=== PATIENT | female | born 1965 | race Caucasian/White ===

== ENCOUNTER → 2023-09-22 09:33 | Outpatient (REF) | payer OTHER, SELFPAY | LOC: RAD 09:33 | PROVIDERS: ATTENDING PHYSICIAN Surgery Vascular Surgery; FAMILY PHYSICIAN Family Medicine | DX: I73.9 Peripheral vascular disease, unspecified (principal) | CPT/HCPCS: 93922; 93925 ==

== ENCOUNTER 2024-01-04 10:11 | Day surgery (SDC) | payer OTHER, SELFPAY ==
[2023-12-30 09:50] VITALS: BMI 29.0
[2023-12-30 10:26] LABS: % Basophils 0.7 % (0-2); % Eosinophils 2.7 % (0-6); % Immature Granulocytes 0.5 % (0-0.5); % Monocytes 6.5 % (1.7-9.3); % Neutrophils 74.6 % (42.2-75.2); Absolute Basophils 0.1 10^3/uL (0-0.2); Absolute Eosinophils 0.2 10^3/uL (0-0.7); Absolute Lymphocytes 1.3 10^3/uL (1.2-3.4); Absolute Monocytes 0.6 10^3/uL (0.1-0.6); Absolute Neutrophils 6.6 10^3/uL (1.4-6.5); Hematocrit 38.5 % (37.0-47.0); Hemoglobin 13.8 g/dL (12.0-16.0); Mean Corp Hgb Conc. 35.8 g/dL (33.0-37.0); Mean Corpuscular Hgb 32.4 pg (27.0-31.0); Mean Corpuscular Volume 90.4 fL (81.0-99.0); Mean Platelet Volume 9.5 fL (7.4-10.4); Nucleated Red Blood Cells % 0 %; Platelet Count 191 10^3/uL (130-400); Red Blood Cell Count 4.26 10^6/uL (4.20-5.40); Red Cell Dist. Width 13.4 % (11.5-14.5); White Blood Cell Count 8.9 10^3/uL (4.8-10.8)
[2023-12-30 10:32] LABS: INR 0.99; PT 13.6 Sec (11.4-14.6)
[2023-12-30 10:33] LABS: APTT 37.8 Sec (23.4-35.0)
[2023-12-30 10:36] LABS: Blood Urea Nitrogen 11 mg/dl (7-17); Calcium 9.9 mg/dl (8.4-10.2); Carbon Dioxide 24 mmol/L (22-30); Chloride 102 mmol/L (98-107); Estimated Creatinine Clearance 67 ml/min; Glucose 124 mg/dl (70-99); Potassium 4.6 mmol/L (3.5-5.1); Sodium 138 mmol/L (135-145); eGFR > 60.00
[2024-01-04] VITALS (25 sets, daily range): BP systolic 79–157; BP diastolic 55–99
[2024-01-04] MEDS: PERIDEX 0.12% ORAL RINSE 15 ML PO (11:09)
[2024-01-04] MEDS: BACTROBAN 2% OINTMENT 1 APPLIC NASAL (11:37)
--- NOTE | 2024-01-04 13:02 | W.SUR.PREOP ---
Pre-Operative Surgical Note
-
I have examined this patient prior to the performance of the scheduled procedure.
The patient's condition is unchanged from the time of the current History and
Physical and the patient is able to undergo the scheduled procedure.
--- NOTE | 2024-01-04 16:28 | OR.RPT ---
Operative Report
Operative Report
Date of Operation: 01/04/2024
Pre Op Diagnosis:
1.) previous right axillary bifemoral artery bypass from outside hospital
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
Post Op Diagnosis:
1.) previous right axillary bifemoral artery bypass from outside hospital
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
Procedure:
1.) Cutdown and exposure of right superficial femoral artery for endovascular procedure
2.) Primary repair of right superficial femoral artery
3.) Drug-coated balloon angioplasty of right superficial femoral artery anastomosis (5 mm x 60 mm & 6 mm x 60 mm Lutonix)
4.) Drug-coated balloon angioplasty to left superficial femoral artery anastomosis (6 mm x 40 mm Lutonix)
5.) Diagnostic bilateral lower extremity arteriograms
6.) Diagnostic right upper extremity arteriogram
Surgeon: Jovanni Bradshaw III, MD
Director Mission: Júnior Brown MD PhD, PGY2
Anesthesia: Sedation with local
Fluoroscopy:
17.8 min
457 mGy
103.47 Gy.cm2
Complications: None
Estimated Blood Loss: Less than 20 cc
History and Indications for Procedure: 58-year-old female with previous right axillary artery to bifemoral artery bypass performed at an outside hospital. She was lost to follow-up but recently represented to the office where she was found to have
bilateral stenoses of the superficial femoral artery anastomoses of her axillary bifemoral artery bypass. She was brought to the operating room for endovascular intervention.
Procedure in Detail: Sera Dawn was correctly identified and placed supine on the operating table. After adequate induction of anesthesia the bilateral groins and thighs were prepped and draped in the usual sterile fashion. A timeout was
performed with the nursing and anesthesia staff confirming the patient's identity as well as the nature and laterality of the procedure.
A vertical incision was made over the proximal right thigh. Using a combination of electrocautery and sharp dissection the superficial femoral artery was exposed. Proximal and distal control was obtained with vessel loops. Under direct
visualization using a micropuncture needle, the superficial femoral artery was punctured in a retrograde fashion towards the groin. I then upsized to a 5 Honduran sheath over a Bentson wire. The patient was systemically heparinized. A limited
diagnostic right lower extremity arteriogram was then performed which demonstrated the following:
RIGHT LOWER EXTREMITY:
Patent end to side femoral anastomosis to the right superficial femoral artery. High-grade stenosis identified at the anastomosis. Diffuse high-grade stenosis involving the proximal superficial femoral artery, proximal to the anastomosis, all the
way back to the femoral bifurcation.
Under roadmap guidance I then navigated a Glidewire and Quickcross catheter retrograde through the hoh superficial femoral artery and through the hoh common femoral artery. The wire was placed in the distal right external iliac artery. I
then exchanged out for a Bentson wire. Under roadmap guidance I brought into position a 5 mm x 60 mm Lutonix drug-coated angioplasty balloon. This was positioned across the distal common femoral artery, proximal superficial femoral artery and the
distal anastomosis. The balloon was inflated to nominal pressure, held in place for 3 minutes and then slowly deflated and removed over the wire. Following this I then used a Quickcross catheter and Glidewire to navigate the wire across the
femoral anastomosis and into the graft. I then exchanged out once again for a Bentson wire. Under roadmap guidance I then positioned a 6 mm x 60 mm Lutonix drug-coated angioplasty balloon across the femoral anastomosis in this orientation. The
balloon was inflated to nominal pressure, held in place for 3 minutes and then slowly deflated and removed over the wire. Subsequent arteriogram demonstrated an excellent technical result. The anastomosis to the superficial femoral artery was
patent with only mild residual stenosis identified. There was a dissection identified in the proximal superficial femoral artery, proximal to the anastomosis but retrograde filling of the common femoral artery and profunda femoral artery was
identified.
We then focused our attention on the left lower extremity. Using a Glidewire and Quickcross catheter under roadmap guidance we navigated through the femorofemoral portion of the graft over to the left groin. A diagnostic arteriogram was then
performed which demonstrated the following:
LEFT LOWER EXTREMITY:
Patent end-to-side femoral anastomosis to the left superficial femoral artery. High-grade stenosis identified at the anastomosis. High-grade stenosis involving the proximal superficial femoral artery, proximal to the anastomosis back to the
femoral bifurcation similar to what was identified on the right.
Under roadmap guidance I then crossed the stenosis at the left femoral anastomosis using a Quickcross catheter and Glidewire. The wire was advanced to the distal superficial femoral artery. I then exchanged out for a Am[employer] Sciencesson wire through the quick
cross catheter. Under roadmap guidance I brought into position a 6 mm x 40 mm Lutonix drug-coated angioplasty balloon and centered this across the left femoral anastomosis. The balloon was slowly inflated to nominal pressure, held in place for 3
minutes and then slowly deflated and removed over the wire. Subsequent arteriogram demonstrated an excellent technical result. The left femoral anastomosis was widely patent with no residual stenosis identified.
We then focused our attention on the right upper extremity. Using the Glidewire and Quickcross catheter we navigated retrograde up the axillary portion of the graft all the way to the right axillary anastomosis. A right upper extremity arteriogram
was then performed through the Quickcross catheter which demonstrated the following:
RIGHT UPPER EXTREMITY:
Patent end-to-side axillary artery anastomosis. Patent axillary artery, brachial artery, radial artery and ulnar artery with no filling defects or stenoses identified.
Satisfied with this result we concluded the procedure. The catheter was pulled from the 5 Fr sheath. The sheath was pulled from the superficial femoral artery puncture site. The vessel loops were secured. The artery puncture site was repaired
primarily with 2 interrupted 6-0 Prolene sutures. The vessel loops were then released. There was an easily palpable pulse in the superficial femoral artery proximal and distal to the repair. Hemostasis was achieved at the suture line. The wound
was irrigated with saline solution. Hemostasis was achieved in the wound bed. The wound was closed in layers and sterile dressings were applied.
The patient tolerated the procedure well and was taken to the recovery area in stable condition.
Attestation: I was present and responsible for the entire procedure.
Signed:
Jovanni Bradshaw III, MD
[facility]
[phone] (cell)
--- NOTE | 2024-01-04 17:14 | W.IMMPOSTOP ---
Surgical Immed Post Op Note
-
Primary Surgeon: Dr. Jovanni Bradshaw III, MD
Assisting Surgeon: Júnior Brown MD, PhD (PGY-2)
Pre-op Diagnosis: Prior right axillary bifemoral artery bypass with distal anastomotic stenosis
Post-op Diagnosis: Prior right axillary bifemoral artery bypass with distal anastomotic stenosis
Procedure Performed: Cut down and exposure of right SFA, balloon angioplasty of right SFA anastomosis, balloon angioplasty of left SFA anastomosis, diagnostic right upper extremity arteriogram
Anesthesia Type: Sedation
Specimen / Cultures: None
Estimated Blood Loss: Minimal
Complications: None
Operative Findings: The patient was brought to the OR, prepped and draped in usual sterile fashion. Incision was made overlying the prior right SFA cut down site. Electrocautery and sharp dissection was used to expose the right SFA. Proximal and
distal control was obtained on the right SFA. A micropuncture kit was used to access the right SFA and this was upsized to a 5Fr sheath over a FullStoryson wire. A catheter was advanced over a guidewire. Diagnostic arteriogram showed a stenotic right SFA
distal anastomosis. This was treated with a balloon angioplasty. The wire was then passed to the proximal SFA prior to the site of the anastomosis on the right side, balloon angioplasty was performed here. Then a glidewire was used to cross the
femoral-femoral bypass to the contralateral left SFA. Diagnostic arteriogram showed stenosis of the left SFA anastomotic site. This was treated with a balloon angioplasty. A glidewire was then passed up the graft to the site of the proximal
anastomosis. Arteriogram demonstrated a patent proximal anastomosis on the right axillary artery with good flow to the RUE. Completion arteriogram showed improved patency and caliber of the distal right SFA and left SFA anastomotic sites. In
addition to a patent proximal anastomosis, there was good flow into the RUE with three vessel run off to the distal wrist/hand. The patient was transported to the PACU in stable condition with doppler signals noted in the DP and PT sites on the RLE.
--- NOTE | 2024-01-04 17:15 | PTCARENOTE ---
Patient received from PACU in bed; IVF infusing; Respirations 10, oxygen saturation 93% on 2L NC; Patient drowsy, sleeping upon arrival but awakens to voice and tactile stimulation; Right groin access site with NILSON dressing, NILSON drain flashing
green, site with 2x2cm spot of sanguinous drainage; Access site without ecchymosis and is soft to palpation; Bilateral pedal pulses and posterior tibial pulses present with doppler, bilateral radial pulses weak to palpation; Bilateral lower
extremities warm to touch, capillary refill <3 seconds, patient denies numbness and/or tingling to lower extremities; Patient denies nausea/vomiting at this time; Patient states pain is a seven out of ten to the pelvic region and right groin; Care
ongoing
[2024-01-04] MEDS: NSS 1000 IV (17:56)
[2024-01-04] MEDS: OFIRMEV 100 IV (17:58)
[2024-01-04] MEDS: NEURONTIN 400 MG PO ×2 (18:28→22:37)
[2024-01-04] MEDS: CARAFATE 1 GRAM PO (18:28)
[2024-01-04] MEDS: REGLAN 10 MG PO (18:29)
[2024-01-04] MEDS: DURAGESIC 25 MCG/HR PATCH 1 PATCH TRANSDERM (18:34)
[2024-01-04] MEDS: DILAUDID 1 MG IV (18:47)
[2024-01-04] MEDS: PROTONIX 40 MG PO (19:55)
[2024-01-04] MEDS: TOPAMAX 100 MG PO (19:55)
[2024-01-04] MEDS: BUSPAR 30 MG PO (19:55)
[2024-01-04] MEDS: HEPARIN 5000 UNITS SC (19:56)
[2024-01-04] MEDS: SEROQUEL 25 MG PO (19:56)
[2024-01-04] MEDS: LOPID 600 MG PO (19:56)
[2024-01-04] MEDS: SEROQUEL 300 MG PO (22:37)
[2024-01-04] MEDS: NIASPAN TIME RELEASE 500 MG PO (22:37)
[2024-01-05] VITALS: BP 120/83
[2024-01-05] MEDS: OFIRMEV 100 IV ×2 (00:06→05:04)
[2024-01-05 03:07] VITALS: BP 122/85
[2024-01-05] MEDS: DILAUDID 1 MG IV (04:56)
[2024-01-05] MEDS: SYNTHROID 100 MCG PO (05:04)
[2024-01-05 05:43] LABS: INR 1.08; PT 14.3 Sec (11.4-14.6)
[2024-01-05 05:44] LABS: APTT 35.3 Sec (23.4-35.0)
[2024-01-05 05:46] LABS: Hematocrit 39.4 % (37.0-47.0); Hemoglobin 13.8 g/dL (12.0-16.0); Mean Corpuscular Hgb 33.7 pg (27.0-31.0); Mean Corpuscular Volume 96.1 fL (81.0-99.0); Mean Platelet Volume 9.6 fL (7.4-10.4); Platelet Count 189 10^3/uL (130-400); Red Cell Dist. Width 13.4 % (11.5-14.5); White Blood Cell Count 14.4 10^3/uL (4.8-10.8)
[2024-01-05 06:13] LABS: Blood Urea Nitrogen 10 mg/dl (7-17); Calcium 9.3 mg/dl (8.4-10.2); Carbon Dioxide 19 mmol/L (22-30); Chloride 109 mmol/L (98-107); Estimated Creatinine Clearance 75 ml/min; Glucose 92 mg/dl (70-99); Potassium 4.1 mmol/L (3.5-5.1); Sodium 139 mmol/L (135-145); eGFR > 60.00
[2024-01-05 07:45] VITALS: BP 142/99
[2024-01-05] MEDS: CARAFATE 1 GRAM PO ×2 (07:56→11:13)
[2024-01-05] MEDS: REGLAN 10 MG PO ×2 (07:56→11:13)
--- NOTE | 2024-01-05 08:28 | W.PN.VS ---
Addendum entered and electronically signed by Rodney Cook MD 01/05/24 10:01:
Seen and examined with DL Reilly. Agree with findings as noted below. Right proximal thigh dressing clean dry and intact. Thigh is soft. No hematoma. Feet are warm with dopplerable signals bilaterally. Plan/as discussed and noted below.
Original Note:
Today's Communication / Plan
-
Patient seen and evaluated at bedside with Dr. Rodney Cook, below plan reviewed with attending.
Assessment/Plan
-
Assessment: 58-year-old female POD #1 Cutdown and exposure of right superficial femoral artery for endovascular procedure
2.) Primary repair of right superficial femoral artery
3.) Drug-coated balloon angioplasty of right superficial femoral artery anastomosis (5 mm x 60 mm & 6 mm x 60 mm Lutonix)
4.) Drug-coated balloon angioplasty to left superficial femoral artery anastomosis (6 mm x 40 mm Lutonix)
5.) Diagnostic bilateral lower extremity arteriograms
6.) Diagnostic right upper extremity arteriogram
Plan:
Prefer patient be on [facility]ass protocol of Xarelto 2.5 mg p.o. twice daily with aspirin 81 mg p.o. daily. However, unclear if patient can afford with her insurance will garcia. If she cannot afford then we will continue DAPT of Plavix 75 mg p.o.
daily and aspirin 81 mg p.o. daily
Continue statin
OOB to chair with progression to ambulation as tolerated
Will return to change petra dressing prior to discharge
Likely discharge today
Subjective Data
-
Date of Service: January 05, 2024
Patient seen and examined at bedside, offers no complaints. Reports well-managed postoperative pain.
Objective Data
-
Vital Signs
Temp Pulse Resp BP Pulse Ox
98.3 F 91 14 142/99 98
01/05/24 07:45 01/05/24 07:45 01/05/24 07:45 01/05/24 07:45 01/05/24 07:45
Intake and Output
01/04/24 01/05/24 01/06/24
06:59 06:59 06:59
Intake Total 1705 / 1705
Output Total 1250 / 1250
Balance 455 / 455
Intake:
Oral fluids 420 / 420
IV fluids (Total) 1085 / 1085
normosol 125 / 125
IV piggybacks 200 / 200
Output:
Urine, Voided 1250 / 1250
Lab Results
01/05/24 04:48
01/05/24 04:48
Calcium 9.3 mg/dl (8.4-10.2) 01/05/24 04:48
Physical Exam
-
No apparent distress, resting bed comfortably
No tachycardia
No dyspnea on room air
ABD rotund, nondistended, nontender
Right surgical petra dressing dry and intact, no evidence of hematoma, all surrounding compartments soft
Bilateral DP by Doppler, bilateral feet warm
[2024-01-05] MEDS: BUSPAR 30 MG PO (09:01)
[2024-01-05] MEDS: HEPARIN 5000 UNITS SC (09:02)
[2024-01-05] MEDS: NEURONTIN 400 MG PO ×2 (09:02→12:10)
[2024-01-05] MEDS: LOPID 600 MG PO (09:02)
[2024-01-05] MEDS: FEOSOL 325 MG PO (09:02)
[2024-01-05] MEDS: CRESTOR 10 MG PO (09:02)
[2024-01-05] MEDS: LOW STRENGTH ASPIRIN 81 MG PO (09:03)
[2024-01-05] MEDS: TOPAMAX 100 MG PO (09:03)
[2024-01-05] MEDS: SEROQUEL 25 MG PO (09:03)
[2024-01-05] MEDS: PLAVIX 75 MG PO (09:03)
[2024-01-05] MEDS: PROTONIX 40 MG PO (09:03)
--- NOTE | 2024-01-05 10:33 | CM ---
Received consult for cost of Xarelto 2.5mg bid. CM spoke with pharmacist at [id number]. Per pharmacist, no cost to the patient.
--- NOTE | 2024-01-05 10:54 | CM ---
Reviewed the chart notes and spoke with the patient at the bedside. The patient resides with her mother in a two story home with no steps to enter. The patient has a rolling walker and shower chair in the home. The patient has had [facility]
in the past, but no SNF. The patient confirmed her pharmacy of choice is the [facility] [id number] [facility] in [place]. CM continues to be available to patient/family and is monitoring medical plan for needs at discharge.
Plan: Discharge to home when medically stable. No needs identified at this time.
[2024-01-05] MEDS: DILAUDID 4 MG PO (11:11)
[2024-01-05 11:56] VITALS: BP 105/71
[2024-01-05] MEDS: PEPCID 40 MG PO (12:10)
[2024-01-05] MEDS: COZAAR 100 MG PO (12:10)
[2024-01-05] MEDS: ZOFRAN 4 MG PO (13:08)
--- NOTE | 2024-01-05 15:09 | W.DS.TRANS ---
DC Summary - Teasel Setter
-
Discharge Instructions:
Discharge Diagnosis/Procedures Left superficial femoral artery cutdown for
bilateral lower extremity angiogram with
intervention
Diet As tolerated
Activity No strenuous activity
Driving Restrictions No driving for 2 weeks
Bathing Restrictions OK to Shower
Instructions:
Stand-Alone Forms: DC Instr - Vascular OR
Changes to Home Medications: Yes
Discharge Medications:
DC Medications w/original date entered in [employer]
buspirone 30 mg tablet 30 mg PO BID 12/28/23
cholecalciferol (vitamin D3) 125 mcg (5,000 unit) tablet (Vitamin D3) 125 mcg PO WEEKLY 12/28/23
clonazepam 1 mg tablet 1 mg PO HS 12/28/23
famotidine 40 mg tablet 40 mg PO NOON 12/28/23
fentanyl 25 mcg/hr transdermal patch 1 patch transdermal Q72H 12/28/23
ferrous sulfate 325 mg (65 mg iron) tablet 325 mg PO DAILY 12/28/23
gabapentin 400 mg capsule 400 mg PO QID 12/28/23
gemfibrozil 600 mg tablet 600 mg PO BID 12/28/23
hydromorphone 2 mg tablet (Dilaudid) 2 mg PO Q6H PRN pain 12/28/23
levothyroxine 100 mcg tablet (Synthroid) 100 mcg PO DAILY 12/28/23
losartan 100 mg tablet 100 mg PO NOON 12/28/23
metoclopramide HCl 10 mg tablet 10 mg PO TID 12/28/23
niacin 500 mg tablet,extended release 500 mg PO HS 12/28/23
ondansetron HCl 4 mg tablet 4 mg PO Q6H PRN nausea 12/28/23
pantoprazole 40 mg tablet,delayed release 40 mg PO BID 12/28/23
quetiapine 25 mg tablet (Seroquel) 25 mg PO BID 12/28/23
quetiapine 300 mg tablet (Seroquel) 300 mg PO HS 12/28/23
rosuvastatin 20 mg tablet 20 mg PO DAILY 12/28/23
tizanidine 4 mg capsule 4 mg PO HS PRN muscle spasm 12/28/23
topiramate 100 mg capsule,extended release 24 hr 100 mg PO BID 12/28/23
aspirin 81 mg chewable tablet 81 mg PO DAILY 01/04/24
rivaroxaban 2.5 mg tablet (Xarelto) 2.5 mg PO BID #180 tabs 01/05/24
sucralfate 1 gram tablet 1 g PO AC 14 days #42 tabs 01/05/24
vortioxetine 20 mg tablet 20 mg PO DAILY #60 tabs 01/05/24
Home Medication Changes
Adjusted:
sucralfate 1 gram tablet 1 g PO AC 14 days #42 tabs 01/05/24
vortioxetine 20 mg tablet 20 mg PO DAILY #60 tabs 01/05/24
Stopped:
Plavix 100 mg p.o. daily
Added:
rivaroxaban 2.5 mg tablet (Xarelto) 2.5 mg PO BID #180 tabs 01/05/24
Pending Results: No
[2024-01-05 16:31] VITALS: BP 116/65
[2024-01-05] MEDS: REGLAN PO (17:07)
[2024-01-05] MEDS: CARAFATE PO (17:07)
== END 2024-01-05 17:15 | disposition home or self-care (01) | DRG 253 ==
LOC: CATH 10:11
PROVIDERS: Nurse Practitioner; ATTENDING PHYSICIAN Surgery Vascular Surgery; FAMILY PHYSICIAN Family Medicine
PROC: 03JY3ZZ Inspection of Upper Artery, Percutaneous Approach (ICD-10-PCS; 2024-01-04)
PROC: 047K3Z1 Dilation of Right Femoral Artery using Drug-Coated Balloon, Percutaneous Approach (ICD-10-PCS; 2024-01-04)
PROC: 047L3Z1 Dilation of Left Femoral Artery using Drug-Coated Balloon, Percutaneous Approach (ICD-10-PCS; 2024-01-04)
DX: I70.213 Atherosclerosis of native arteries of extremities with intermittent claudication, bilateral legs (principal); Q60.0 Renal agenesis, unilateral; E03.9 Hypothyroidism, unspecified; K22.70 Barrett's esophagus without dysplasia; K58.9 Irritable bowel syndrome, unspecified; G47.419 Narcolepsy without cataplexy; G43.909 Migraine, unspecified, not intractable, without status migrainosus; I10 Essential (primary) hypertension; E78.00 Pure hypercholesterolemia, unspecified; I34.9 Nonrheumatic mitral valve disorder, unspecified; F17.210 Nicotine dependence, cigarettes, uncomplicated; Z79.82 Long term (current) use of aspirin; Z79.02 Long term (current) use of antithrombotics/antiplatelets; Z79.890 Hormone replacement therapy; Z79.899 Other long term (current) drug therapy; Y83.2 Surgical operation with anastomosis, bypass or graft as the cause of abnormal reaction of the patient, or of later complication, without mention of misadventure at the time of the procedure
CPT/HCPCS: 37224; 36415; 75716; 80048; 85025; 85027; 85610; 85730; 86850; 86900; 86901; 99406; C1725; C1894; C2623

== ENCOUNTER → 2024-01-17 12:53 | Outpatient (REF) | payer OTHER, SELFPAY ==
[2024-01-17 13:52] LABS: % Basophils 0.9 % (0-2); % Immature Granulocytes 0.5 % (0-0.5); % Lymphocytes 23.7 % (20.5-51.1); % Monocytes 7.4 % (1.7-9.3); % Neutrophils 62.5 % (42.2-75.2); Absolute Basophils 0.1 10^3/uL (0-0.2); Absolute Eosinophils 0.5 10^3/uL (0-0.7); Absolute Immature Granulocytes 0.1 10^3/uL (0-0.05); Absolute Lymphocytes 2.3 10^3/uL (1.2-3.4); Absolute Monocytes 0.7 10^3/uL (0.1-0.6); Absolute Neutrophils 6.1 10^3/uL (1.4-6.5); Hematocrit 39.3 % (37.0-47.0); Mean Corp Hgb Conc. 33.1 g/dL (33.0-37.0); Mean Corpuscular Hgb 33.2 pg (27.0-31.0); Mean Corpuscular Volume 100.5 fL (81.0-99.0); Mean Platelet Volume 9.4 fL (7.4-10.4); Nucleated Red Blood Cells % 0 %; Platelet Count 203 10^3/uL (130-400); Red Blood Cell Count 3.91 10^6/uL (4.20-5.40); Red Cell Dist. Width 14.2 % (11.5-14.5); White Blood Cell Count 9.7 10^3/uL (4.8-10.8)
== END ==
LOC: REG 12:53
PROVIDERS: ATTENDING PHYSICIAN Physician Assistant; FAMILY PHYSICIAN Family Medicine
DX: I73.9 Peripheral vascular disease, unspecified (principal); Z98.890 Other specified postprocedural states; R89.9 Unspecified abnormal finding in specimens from other organs, systems and tissues
CPT/HCPCS: 36415; 85025

== ENCOUNTER → 2024-05-08 08:54 | Outpatient (REF) | payer OTHER, SELFPAY | LOC: RAD 08:54 | PROVIDERS: ATTENDING PHYSICIAN Physician Assistant | DX: I73.9 Peripheral vascular disease, unspecified (principal) | CPT/HCPCS: 93922; 93925 ==

== ENCOUNTER 2024-06-06 05:52 | Inpatient (IN) | payer OTHER, SELFPAY ==
[2024-05-31 08:52] VITALS: BMI 29.3
[2024-05-31 10:32] LABS: % Basophils 0.8 % (0-2); % Eosinophils 3.2 % (0-6); % Immature Granulocytes 1.5 % (0-0.5); % Lymphocytes 20.9 % (20.5-51.1); % Monocytes 6.6 % (1.7-9.3); Absolute Basophils 0.1 10^3/uL (0-0.2); Absolute Eosinophils 0.2 10^3/uL (0-0.7); Absolute Immature Granulocytes 0.1 10^3/uL (0-0.05); Absolute Lymphocytes 1.6 10^3/uL (1.2-3.4); Absolute Monocytes 0.5 10^3/uL (0.1-0.6); Hematocrit 39.9 % (37.0-47.0); Hemoglobin 13.9 g/dL (12.0-16.0); Mean Corp Hgb Conc. 34.8 g/dL (33.0-37.0); Mean Corpuscular Hgb 32.9 pg (27.0-31.0); Mean Corpuscular Volume 94.3 fL (81.0-99.0); Mean Platelet Volume 9.4 fL (7.4-10.4); Nucleated Red Blood Cells % 0 %; Platelet Count 217 10^3/uL (130-400); Red Blood Cell Count 4.23 10^6/uL (4.20-5.40); Red Cell Dist. Width 13.6 % (11.5-14.5); White Blood Cell Count 7.4 10^3/uL (4.8-10.8)
[2024-05-31 10:47] LABS: INR 1.04; PT 14.1 Sec (11.4-14.6)
[2024-05-31 10:48] LABS: APTT 36.7 Sec (23.4-35.0)
[2024-05-31 11:00] LABS: Blood Urea Nitrogen 11 mg/dl (7-17); Calcium 9.7 mg/dl (8.4-10.2); Carbon Dioxide 23 mmol/L (22-30); Chloride 110 mmol/L (98-107); Estimated Creatinine Clearance 69 ml/min; Glucose 149 mg/dl (70-99); Potassium 4.4 mmol/L (3.5-5.1); Sodium 141 mmol/L (135-145); eGFR > 60.00
--- NOTE | 2024-06-02 07:55 | PTCARENOTE ---
Abn ECG, Dr. Martin notified, no new interventions required.
[2024-06-06] VITALS (26 sets, daily range): BP systolic 99–159; BP diastolic 72–110; BMI 29.2
[2024-06-06] MEDS: PERIDEX 0.12% ORAL RINSE 15 ML PO (07:09)
[2024-06-06] MEDS: BACTROBAN NASAL 1 GRAM NASAL (07:10)
--- NOTE | 2024-06-06 10:27 | OR.RPT ---
Operative Report
Operative Report
Date of Operation: 06/06/2024
Pre Op Diagnosis:
1. High-grade stenosis innominate artery
2. Right axillary to bifemoral artery bypass
3. Chronic pain syndrome
4. Active smoking
Post Op Diagnosis:
1. High-grade stenosis innominate artery
2. Right axillary to bifemoral artery bypass
3. Chronic pain syndrome
4. Active smoking
Procedure:
1. Intravascular lithotripsy to innominate artery stenosis (12 mm x 30 mm L6 shockwave balloon)
2. Balloon angioplasty and stenting of innominate artery stenosis (11 mm x 29 mm Gilmer VBX; postdilated with 12 mm x 20 mm angioplasty balloon)
3. Right common carotid artery cutdown and exposure for endovascular intervention
4. Diagnostic arteriogram of innominate, right subclavian, right axillary and right common carotid artery
Surgeon: Jovanni Bradshaw III, MD
Information Systems Planner: Ubaldo Guerra MD PGY1
Anesthesia: General
Complications: None
Estimated Blood Loss: Less than 20 cc
History and Indications for Procedure: 58-year-old female with complex vascular surgery history. She has a patent right axillary artery to bifemoral artery bypass graft. Cross-sectional imaging demonstrated a calcified high-grade stenosis
involving the innominate origin. This was felt to be compromising flow to her bypass and she was taken to the operating room for intervention.
Procedure in Detail: Sera Dawn was correctly identified and placed supine on the operating table. After adequate induction of anesthesia her right neck was positioned and then prepped and draped in usual sterile fashion. She received
preoperative antibiotics. A timeout procedure was performed with the nursing and anesthesia staff confirming the patient's identity as well as the nature and laterality of the procedure.
We started by making an incision over the right neck. Electrocautery and sharp dissection were used to expose the common carotid artery. The vagus nerve was identified and protected. Proximal and distal control was obtained on the common carotid
artery with vessel loops. The pulse in the right common carotid artery was quite weak consistent with the innominate stenosis. The patient was systemically heparinized. A 5-0 Prolene pursestring suture was placed in the common carotid artery at
the site of anticipated puncture.
The right common carotid artery was punctured in a retrograde fashion with a micropuncture needle. The wire was carefully advanced into the ascending aorta under fluoroscopic guidance. The micro dilator and sheath were carefully placed and then an
8 Malay sheath was placed over a Bentson wire. A diagnostic arteriogram was performed demonstrating high-grade calcified stenosis at the innominate origin. The more distal innominate demonstrated poststenotic dilatation. The common carotid
artery and subclavian artery were patent. The innominate bifurcation was clearly identified.
I exchanged out for a V18 wire. Due to the heavily calcified nature of the innominate artery disease and in an effort to modify the calcium to achieve maximum luminal gain with endovascular intervention I elected to proceed with intravascular
lithotripsy. The distal common carotid artery vessel loop was clamped at this point. A 12 mm x 30 mm L6 shockwave balloon was placed across the stenosis under roadmap guidance. Alternating rounds of lithotripsy pulse delivery at sub-nominal
pressure and angioplasty at nominal pressure was performed across the stenosis. In between rounds of pulse delivery and angioplasty the balloon was deflated and repositioned under roadmap guidance. All 300 pulses were delivered.
Subsequent arteriogram demonstrated significant luminal gain and improvement in the appearance of the innominate stenosis. Under roadmap guidance and magnification view I then brought into position an 11 mm x 29 mm Gilmer VBX stent. This was
positioned in the desired location and deployed by inflating the balloon to nominal pressure. The stent was then postdilated with a 12 mm x 20 mm angioplasty balloon.
The following balloon angioplasty and stent placement the common carotid artery vessel loop was released. Completion arteriogram demonstrated an excellent technical result. The innominate artery was widely patent with no significant residual
stenosis. The stent was widely patent. No dissection or filling defects were identified. The right common carotid artery was patent. The right subclavian and axillary arteries were widely patent with brisk flow and no stenosis identified. The
proximal portion of the right axillary bifemoral bypass was patent. The axillary anastomosis was patent with no stenosis identified.
Satisfied with this result we concluded the procedure. The wire was removed from the sheath. The 8 Malay sheath was removed and the pursestring suture was secured. Hemostasis was achieved at the puncture site. There was a strong and
significantly improved pulse in the right common carotid artery both proximal and distal to the puncture site. Protamine was administered. Hemostasis was achieved in the wound bed. The wound was irrigated with warm saline solution. The wound was
then closed in layers and sterile skin glue was applied.
No EEG changes were identified throughout the case. The patient awoke from general anesthesia with no immediate neurologic deficits. She was taken to the recovery room in stable condition.
Attestation: I was present and responsible for the entire procedure
Signed:
Jovanni Bradshaw III, MD
Vascular Surgery
[facility]
[2024-06-06 10:51] LABS: Hematocrit 40.5 % (37.0-47.0); Hemoglobin 13.9 g/dL (12.0-16.0); Mean Corp Hgb Conc. 34.3 g/dL (33.0-37.0); Mean Corpuscular Hgb 32.3 pg (27.0-31.0); Mean Platelet Volume 9.4 fL (7.4-10.4); Platelet Count 190 10^3/uL (130-400); Red Blood Cell Count 4.31 10^6/uL (4.20-5.40); Red Cell Dist. Width 13.7 % (11.5-14.5); White Blood Cell Count 9.7 10^3/uL (4.8-10.8)
[2024-06-06 11:13] LABS: Blood Urea Nitrogen 8 mg/dl (7-17); Calcium 8.8 mg/dl (8.4-10.2); Carbon Dioxide 19 mmol/L (22-30); Chloride 111 mmol/L (98-107); Estimated Creatinine Clearance 89 ml/min; Glucose 163 mg/dl (70-99); Potassium 4.3 mmol/L (3.5-5.1); Sodium 141 mmol/L (135-145); eGFR > 60.00
[2024-06-06] MEDS: NSS 1000 IV ×2 (11:24→23:54)
[2024-06-06] MEDS: DILAUDID 2 MG PO (11:48)
--- NOTE | 2024-06-06 12:19 | PTCARENOTE ---
arrived from PACU via bed, settled in room, see VS. Palpable pulses bilat feet, neuro exam as noted, no deficit. Updated on plan of care. Initially sonorous and falls asleep readily, now brightly awake, talking on phone, drinking coffee.
Vascular DRYER AND WASHER MECHANIC in room, reviewing plan of care. Call goodman in reach. IV fluids as ordered. See admission documentation for full assessment and history.
--- NOTE | 2024-06-06 12:20 | CON.INTV ---
Consultation
Consultation Request
Date/Time Consultation Requested: 06/06/2024922
Date/Time Consultation Performed: 06/06/2024 - 949
Requesting Provider: JAQUELINE Fairbanks
Performing Provider: Dr. Troy
Reason for Consultation: s/p inominate artery lithotripsy, angioplasty + stenting
Medical History
-
Chief Complaint: Elective innominate artery angioplasty + stenting
History of Present Illness:
58-year-old female active tobacco smoker with a past medical history of PAD s/p right axillary to bifemoral artery bypass, bilateral SFA anastomosis stenoses s/p angioplasty (01/04/2024), Teresa's esophagus, narcolepsy, migraine headaches, and
chronic pain syndrome who presents with elective vascular intervention to her stenotic innominate artery. Patient known to vascular surgery with last visit on 05/08/[address] Bradshaw. She has had prior imaging at [facility]
including a CTA which showed high-grade stenosis at her innominate origin which is likely limiting inflow to her right axillary artery to bifemoral arterial bypass. Endovascular intervention was recommended and the risks and benefits were discussed
and the patient agreed to a procedure. Today she underwent intravascular lithotripsy to the innominate artery stenosis, as well as balloon angioplasty and stenting. EBL was <20 cc and there were no immediate complications. She was transferred to
the ICU postoperatively for further care, and Group Fitness Assistant Department Head services consulted for additional management/recommendations.
Of note - she did not arrive to the ICU from the PACU until approximately 12:19 PM on 06/06/2024. When I saw the patient, she was drowsy although easily arousable and answering questions appropriately, but then would fall back asleep. Heart rate
90, BP 132/82, and saturating 95% on 4 L/min nasal cannula. She feels well with no chest pain, SOB, nausea, fevers or chills, although she does have a frontal headache which feels different than her usual migraines. RN is about to give her pain
medications with Dilaudid. Patient does not report blurry vision.
PMHx: PAD s/p right axillary to bifemoral artery bypass, bilateral SFA anastomosis stenoses s/p angioplasty (01/04/2024), tobacco use disorder, thyroid disease, IBS, Teresa's disease, narcolepsy, migraine headaches, chronic pain syndrome, single
kidney
PSHx: section x 2, right axillary to bifemoral artery bypass, AAA repair, stimulator in back, GPOEM, right superficial femoral artery angioplasty
Past Medical History
Past Medical History: Other (Above as per HPI)
Past Surgical History: Other (Above as per HPI)
Social History
Tobacco: Smoker (Smokes 1.5 PPD)
Alcohol: None
Drug: None
Family History
Family History: CAD (Mother) and Cancer (Father: Throat cancer with prior exposure to agent orange; Mother: Melanoma)
Allergies / Home Medications
Allergies
Allergy/AdvReac Type Severity Reaction Status Date / Time
Tetracyclines Allergy Severe Verified 05/30/24 12:35
Migraines/N/V
Home Medications
�Medication �Instructions �Recorded �Confirmed �Last Taken �Type
buspirone 30 mg tablet 30 mg PO BID Mental Health/Anxiety 12/28/23 06/06/24 06/05/24 23:00 History
cholecalciferol (vitamin D3) 125 125 mcg PO WEEKLY Supplement 12/28/23 05/30/24 Unknown History
mcg (5,000 unit) tablet (Vitamin
D3)
clonazepam 1 mg tablet 1 mg PO HS Mental Health/Anxiety 12/28/23 06/06/24 06/05/24 23:00 History
famotidine 40 mg tablet 40 mg PO NOON Gastrointestinal 12/28/23 06/06/24 06/05/24 12:00 History
Issue
fentanyl 25 mcg/hr transdermal 1 patch transdermal Q72H Pain 12/28/23 06/06/24 06/03/24 15:00 History
patch
ferrous sulfate 325 mg (65 mg 325 mg PO DAILY Supplement 12/28/23 06/06/24 06/05/24 12:00 History
iron) tablet
gabapentin 400 mg capsule 400 mg PO QID Pain 12/28/23 06/06/24 06/05/24 23:00 History
gemfibrozil 600 mg tablet 600 mg PO BID High Cholesterol 12/28/23 06/06/24 06/05/24 18:00 History
hydromorphone 2 mg tablet 2 mg PO Q6H PRN pain 12/28/23 06/06/24 06/06/24 04:30 History
(Dilaudid)
levothyroxine 100 mcg tablet 100 mcg PO DAILY Thyroid 12/28/23 06/06/24 06/05/24 08:00 History
(Synthroid)
niacin 500 mg tablet,extended 500 mg PO HS Supplement 12/28/23 06/06/24 06/05/24 23:00 History
release
ondansetron HCl 4 mg tablet 4 mg PO Q6H PRN nausea 12/28/23 06/06/24 06/05/24 08:00 History
pantoprazole 40 mg tablet,delayed 40 mg PO DAILY Gastrointestinal 12/28/23 06/06/24 06/05/24 18:00 History
release Issue
quetiapine 25 mg tablet (Seroquel) 25 mg PO BID Mental Health/Anxiety 12/28/23 06/06/24 06/05/24 18:00 History
quetiapine 300 mg tablet (Seroquel) 300 mg PO HS Mental Health/Anxiety 12/28/23 06/06/24 06/05/24 23:00 History
rosuvastatin 20 mg tablet 20 mg PO DAILY High Cholesterol 12/28/23 06/06/24 06/05/24 18:00 History
tizanidine 4 mg capsule 4 mg PO HS PRN muscle spasm 12/28/23 06/06/24 06/02/24 12:00 History
topiramate 100 mg capsule,extended 100 mg PO BID MIGRAINE 12/28/23 06/06/24 06/05/24 18:00 History
release 24 hr
aspirin 81 mg chewable tablet 81 mg PO DAILY Blood Clot 01/04/24 06/06/24 06/05/24 12:00 History
Prevention/Tx
rivaroxaban 2.5 mg tablet (Xarelto) 2.5 mg PO BID #180 tabs 01/05/24 06/06/24 06/04/24 23:00 Rx
sucralfate 1 gram tablet 1 g PO AC 14 days #42 tabs 01/05/24 06/06/24 06/05/24 18:00 Rx
vortioxetine 20 mg tablet 20 mg PO DAILY #60 tabs 01/05/24 06/06/24 06/05/24 Rx
ketamine IV QMONTH Pain 05/30/24 05/22/24 History
mirtazapine 7.5 mg tablet 7.5 mg PO DAILY Mental 05/30/24 06/06/24 06/05/24 18:00 History
Health/Anxiety
rimegepant 75 mg disintegrating 75 mg PO DAILY PRN migraine 05/30/24 05/30/24 Unknown History
tablet (Nurtec ODT)
tenapanor 50 mg tablet (Ibsrela) 50 mg PO BID Gastrointestinal Issue 05/30/24 06/06/24 06/05/24 18:00 History
ubrogepant 100 mg tablet (Ubrelvy) 100 mg PO ONCE PRN migraine 05/30/24 06/06/24 06/05/24 12:00 History
Review of Systems
-
Unable to Obtain full review of systems at this time due to: Acuity (drowsy)
Vitals / Labs / Diagnostic Testing
Vital Signs
Temp Pulse Resp BP Pulse Ox
98.6 F 89 12 132/82 94
06/06/24 11:29 06/06/24 11:30 06/06/24 11:30 06/06/24 11:30 06/06/24 11:00
Lab Data
06/06/24 10:41
06/06/24 10:41
Diagnostic Testing:
Physical Exam
-
HEENT: Normocephalic and Anicteric
Cardiovascular: S1/S2 and Peripheral Edema (negative)
Respiratory: Clear, Wheeze (negative), Rales (negative), Rhonchi (negative) and Non-Labored Respirations
GI: Soft, Non Distended, Non Tender and Normal Bowel Sounds
Neurology: Tremors (negative) and Other (Drowsy but still answering questions appropriately)
Skin: Warm and Dry
General: Respiratory Distress (negative), Comfortable, Fever (negative) and Chills (negative)
Assessment
-
Assessment: 58-year-old female active tobacco smoker with a past medical history of PAD s/p right axillary to bifemoral artery bypass, bilateral SFA anastomosis stenoses s/p angioplasty (01/04/2024), Teresa's esophagus, narcolepsy, migraine
headaches, and chronic pain syndrome who presents with elective vascular intervention to her stenotic innominate artery. Patient known to vascular surgery with last visit on 05/08/[address] Bradshaw. She has had prior imaging at [facility] including a CTA which showed high-grade stenosis at her innominate origin which is likely limiting inflow to her right axillary artery to bifemoral arterial bypass. Endovascular intervention was recommended and the risks and benefits
were discussed and the patient agreed to a procedure. On 06/06/2024, she underwent intravascular lithotripsy to the innominate artery stenosis, as well as balloon angioplasty and stenting. EBL was <20 cc and there were no immediate complications.
She was transferred to the ICU postoperatively for further care, and Group Fitness Assistant Department Head services consulted for additional management/recommendations.
Chronic conditions SKIVER COUNTER: PAD s/p right axillary to bifemoral artery bypass, bilateral SFA anastomosis stenoses s/p angioplasty (01/04/2024), tobacco use disorder, thyroid disease, IBS, Teresa's disease, narcolepsy, migraine headaches, chronic pain
syndrome, single kidney
Impression:
#High-grade stenosis of innominate artery s/p intravascular lithotripsy + balloon angioplasty and stenting (POD #0)
#History of right axillary to bifemoral arterial bypass
#Chronic pain syndrome
#Active tobacco smoker
#IBS
#History of narcolepsy
#Migraine headaches
#Chronic pain syndrome
#Teresa's esophagus
Plan:
Postoperative surgical intensive care unit monitoring
Supplemental oxygen as needed to maintain SpO2 >90-94%
prn nebulized bronchodilators - not currently bronchospastic
She is at risk of COPD - could consider following with me in office for full PFTs and discussion of LDCT Chest for lung cancer screening
Incentive spirometry encouraged 10x per hour for at least 4 hrs a day
Aspiration precautions
Pain control
Neuro and vascular checks per protocol
Maintain MAP>65
Replete electrolytes with K>4, Mg>2
Maintain euglycemia with goal BG 140-180
Vascular surgery following-correspondence and operative notes reviewed
Transfuse blood products as needed to keep Hb>7g/dL, and plt>50k (given post-operative status)
Nicotine patch if ok with vascular surgery
DVT prophylaxis - on xarelto as an outpatient
Early nutrition
Early mobilization as tolerated
Critical care statement: A total of 37 minutes of critical care time was provided for this patient today. This includes management of unstable vital signs, evaluation of the patient at bedside, reviewing the patient's pertinent medical records
including radiographs, microbiology, laboratory evaluations, and discussion with primary team, consultants, pharmacy, nutrition, physical therapy, case management, charge nurse, critical care nursing, and respiratory therapy.
[2024-06-06] MEDS: PEPCID 40 MG PO (12:26)
[2024-06-06] MEDS: NEURONTIN 400 MG PO (12:26)
[2024-06-06] MEDS: CARAFATE 1 GRAM PO ×2 (12:26→16:32)
--- NOTE | 2024-06-06 12:31 | W.IMMPOSTOP ---
Surgical Immed Post Op Note
-
Primary Surgeon: Augustine
Assisting Surgeon: Mari
Pre-op Diagnosis: Innominate artery stenosis
Post-op Diagnosis: same
Procedure Performed: ivl/police captain precinct/stent innominate artery via right cca cutdown
Anesthesia Type: general
Specimen / Cultures: none
Estimated Blood Loss: minimal
Complications: none
Operative Findings: successful stenting
[2024-06-06] MEDS: NON-FORMULARY ITEM 1 UNIT PO (13:10)
[2024-06-06] MEDS: ZOFRAN 4 MG PO (15:04)
[2024-06-06] MEDS: DURAGESIC 25 MCG/HR PATCH 1 PATCH TRANSDERM (15:04)
[2024-06-06] MEDS: COMPAZINE 10 MG IV (16:57)
--- NOTE | 2024-06-06 17:00 | PTCARENOTE ---
c/o nausea, zofran given earlier ineffective, order obtained from Dr. Troy for compazine, given, pt currently resting on side, emesis bag nearby. support given, VS noted, no neuro or vascular change from earlier.
[2024-06-06] MEDS: NEURONTIN PO ×2 (18:07→23:08)
--- NOTE | 2024-06-06 18:26 | PTCARENOTE ---
declined 1800 med gabapentin, still nauseous. positioned to R side. neuro/vascular checks unchanged. neck surgical adhesive, very little bruising, using ice pack for comfort.
[2024-06-06] MEDS: DILAUDID 4 MG PO (18:50)
[2024-06-06] MEDS: SEROQUEL 25 MG PO (20:35)
[2024-06-06] MEDS: BUSPAR 30 MG PO (20:35)
[2024-06-06] MEDS: TOPAMAX 100 MG PO (20:35)
[2024-06-06] MEDS: LOPID 600 MG PO (20:35)
[2024-06-06] MEDS: XARELTO 2.5 MG PO (20:35)
[2024-06-06] MEDS: SEROQUEL 300 MG PO (22:07)
[2024-06-06] MEDS: KLONOPIN 1 MG PO (22:07)
[2024-06-07] VITALS (11 sets, daily range): BP systolic 118–154; BP diastolic 69–90; BMI 29.3
--- NOTE | 2024-06-07 00:34 | PTCARENOTE ---
Pt received at 19:00. Bedside site, neuro, and neurovascular checks completed. Ox3, follows commands. SR, palpable pulses. DP weak but palpable. 2L NC, pulse ox 95%, breath sounds diminished. + bowel sounds, no BM, c/o nausea upon initial
assessment, denies pain at this time. Voids clear yellow urine. R neck incision CDI, well approximated. Denies pain. Safe environment maintained, call goodman within reach, repositioning self.
[2024-06-07 05:09] LABS: Hematocrit 36.1 % (37.0-47.0); Hemoglobin 12.5 g/dL (12.0-16.0); INR 1.09; Mean Corp Hgb Conc. 34.6 g/dL (33.0-37.0); Mean Corpuscular Hgb 32.6 pg (27.0-31.0); Mean Corpuscular Volume 94.3 fL (81.0-99.0); PT 14.4 Sec (11.4-14.6); Platelet Count 181 10^3/uL (130-400); Red Blood Cell Count 3.83 10^6/uL (4.20-5.40); Red Cell Dist. Width 13.5 % (11.5-14.5); White Blood Cell Count 11.2 10^3/uL (4.8-10.8)
[2024-06-07 05:10] LABS: APTT 33.1 Sec (23.4-35.0)
[2024-06-07 05:14] LABS: Blood Urea Nitrogen 9 mg/dl (7-17); Calcium 8.7 mg/dl (8.4-10.2); Carbon Dioxide 20 mmol/L (22-30); Chloride 115 mmol/L (98-107); Estimated Creatinine Clearance 89 ml/min; Glucose 107 mg/dl (70-99); Sodium 142 mmol/L (135-145); eGFR > 60.00
--- NOTE | 2024-06-07 05:41 | PTCARENOTE ---
Pt assessment unchanged. Neuro and neurovascular checks q1h, see flowsheet.
[2024-06-07] MEDS: SYNTHROID 100 MCG PO (06:10)
[2024-06-07] MEDS: DILAUDID 2 MG PO ×2 (06:14→12:14)
[2024-06-07] MEDS: PROTONIX 40 MG PO (07:24)
[2024-06-07] MEDS: CARAFATE 1 GRAM PO ×2 (07:24→11:55)
[2024-06-07] MEDS: ZOFRAN 4 MG PO (07:24)
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
[2024-06-07] MEDS: CRESTOR 20 MG PO (08:36)
[2024-06-07] MEDS: FEOSOL 325 MG PO (08:36)
[2024-06-07] MEDS: BUSPAR 30 MG PO (08:36)
[2024-06-07] MEDS: LOW STRENGTH ASPIRIN 81 MG PO (08:36)
[2024-06-07] MEDS: XARELTO 2.5 MG PO (08:36)
[2024-06-07] MEDS: SEROQUEL 25 MG PO (08:36)
[2024-06-07] MEDS: TOPAMAX 100 MG PO (08:36)
[2024-06-07] MEDS: NEURONTIN 400 MG PO ×2 (08:36→14:33)
[2024-06-07] MEDS: LOPID 600 MG PO (08:36)
[2024-06-07] MEDS: REMERON 7.5 MG PO (08:37)
--- NOTE | 2024-06-07 08:45 | PTCARENOTE ---
recd pt 0715 handoff at bedside, neuro/vascular checks unchanged. resting. aware of plans for day. seen by Vascular team, IV fluids capped, ambulated with RW to bathroom, gait steady and no unsteadiness. back to bed, brighter spirits, ordered
and awaiting breakfast.
--- NOTE | 2024-06-07 09:02 | W.PN.VS ---
Today's Communication / Plan
-
Discussed with Dr. Bradshaw
Assessment/Plan
-
POD 1 innominate artery angioplasty and stenting
Plan:
- DC IV fluids
- Out of bed/ambulate
- Continue p.o. medications
- Regular diet
- DC later today
Subjective Data
-
Date of Service: June 07, 2024
Patient seen at bedside this a.m. Patient offers no complaints at this time. No events overnight.
Objective Data
-
Vital Signs
Temp Pulse Resp BP Pulse Ox
98.8 F 94 17 125/88 95
06/07/24 07:46 06/07/24 08:30 06/07/24 08:30 06/07/24 08:00 06/07/24 08:58
Intake and Output
06/06/24 06/07/24 06/08/24
06:59 06:59 06:59
Intake Total 2030 / 2110 520 / 520
Output Total 550 / 550
Balance 1480 / 1560 520 / 520
Intake:
Oral fluids 360 / 360 360 / 360
IV fluids (Total) 1670 / 1750 160 / 160
NSS 1670 / 1750 160 / 160
Output:
Urine, Voided 550 / 550
Other:
Number of approximated LARGE 1 1
amounts of urine
How many times incontinent 1
SATURATED amount urine
Lab Results
06/07/24 04:37
06/07/24 04:37
Calcium 8.7 mg/dl (8.4-10.2) 06/07/24 04:37
Physical Exam
-
AAO x 3
No tachypnea on room air
No tachycardia
Abdomen soft
Neck site clean, dry, intact, soft, flat
Moves all extremities to commands
--- NOTE | 2024-06-07 10:20 | W.DS.TRANS ---
DC Summary - Shipyard Supervisor
-
Discharge Instructions:
Discharge Diagnosis/Procedures Stent placement to innominate artery via right
common carotid artery cutdown
Diet As tolerated
Activity No strenuous activity
Bathing Restrictions OK to Shower
Instructions:
Stand-Alone Forms:
Changes to Home Medications: No
Discharge Medications:
DC Medications w/original date entered in [facility]
buspirone 30 mg tablet 30 mg PO BID Mental Health/Anxiety 12/28/23
cholecalciferol (vitamin D3) 125 mcg (5,000 unit) tablet (Vitamin D3) 125 mcg PO WEEKLY Supplement 12/28/23
clonazepam 1 mg tablet 1 mg PO HS Mental Health/Anxiety 12/28/23
famotidine 40 mg tablet 40 mg PO NOON Gastrointestinal Issue 12/28/23
fentanyl 25 mcg/hr transdermal patch 1 patch transdermal Q72H Pain 12/28/23
ferrous sulfate 325 mg (65 mg iron) tablet 325 mg PO DAILY Supplement 12/28/23
gabapentin 400 mg capsule 400 mg PO QID Pain 12/28/23
gemfibrozil 600 mg tablet 600 mg PO BID High Cholesterol 12/28/23
hydromorphone 2 mg tablet (Dilaudid) 2 mg PO Q6H PRN pain 12/28/23
levothyroxine 100 mcg tablet (Synthroid) 100 mcg PO DAILY Thyroid 12/28/23
niacin 500 mg tablet,extended release 500 mg PO HS Supplement 12/28/23
ondansetron HCl 4 mg tablet 4 mg PO Q6H PRN nausea 12/28/23
pantoprazole 40 mg tablet,delayed release 40 mg PO DAILY Gastrointestinal Issue 12/28/23
quetiapine 25 mg tablet (Seroquel) 25 mg PO BID Mental Health/Anxiety 12/28/23
quetiapine 300 mg tablet (Seroquel) 300 mg PO HS Mental Health/Anxiety 12/28/23
rosuvastatin 20 mg tablet 20 mg PO DAILY High Cholesterol 12/28/23
tizanidine 4 mg capsule 4 mg PO HS PRN muscle spasm 12/28/23
aspirin 81 mg chewable tablet 81 mg PO DAILY Blood Clot Prevention/Tx 01/04/24
rivaroxaban 2.5 mg tablet (Xarelto) 2.5 mg PO BID #180 tabs 01/05/24
sucralfate 1 gram tablet 1 g PO AC 14 days #42 tabs 01/05/24
vortioxetine 20 mg tablet 20 mg PO DAILY #60 tabs 01/05/24
ketamine IV QMONTH Pain 05/30/24
mirtazapine 7.5 mg tablet 7.5 mg PO DAILY Mental Health/Anxiety 05/30/24
rimegepant 75 mg disintegrating tablet (Nurtec ODT) 75 mg PO DAILY PRN migraine 05/30/24
tenapanor 50 mg tablet (Ibsrela) 50 mg PO BID Gastrointestinal Issue 05/30/24
ubrogepant 100 mg tablet (Ubrelvy) 100 mg PO ONCE PRN migraine 05/30/24
topiramate 100 mg tablet 100 mg PO BID MIGRAINE 06/06/24
Home Medication Changes
Pending Results: No
--- NOTE | 2024-06-07 10:49 | CM ---
CM following re: discharge planning.
Reviewed pt's chart, met with pt.
Pt is a 58 year old female, admitted with primary dx of POD 1 innominate artery angioplasty and stenting.
Pt reports she lives with son and a mother in a 2[place], no steps to enter. Pt reports she ambulates with Rollator, has a w/c, shower chair. Pt reports her son is a caregiver, provided 49 hours per week caregiver services managed by [facility]. Pt
reports her son went on vacation and her mother now providing care and support. pt stated she will not need any after care VN services.
Discharge order noted. Pt is aware, expressed her agreement and she stated her mother will transport her home at 1:00 p.m. IMM reviewed, placed on chart, pt has a copy.
PCP: Yana Reilly
Pharmacy: [facility]
D/C plan: home with resumptions of caregiver services and family support. Mother to transport.
--- NOTE | 2024-06-07 11:04 | W.DCSUMMARY ---
Discharge Summary
Discharge Data
Date of Admission: 06/06/24
Date of Discharge: 06/07/24
-
Pending Results: No
Hospital Course
Attending: Augustine
Consultants: Pulmonary medicine
Allergies: tetracyclines
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
smoker, IBS, thyroid disease, Teresa's disease, narcolepsy, migraines, chronic pain syndrome, single kidney. Patient presented on for scheduled procedure with Dr. Bradshaw. Patient presented at baseline health with no reports of recent illness
or trauma.
Hospital Course: Briefly, the patient underwent scheduled innominate artery stenting without complications, and recovered in PACU. Following recovery phase one and two patient was transferred to intensive care unit per protocol for continued
hemodynamic monitoring. Ship Steward consulted to aid in medical management from a critical care perspective. POD #1 (06/07/2024) Patient doing well overall and tolerating PO diet. Surgical neck site clean, dry, and intact with suture line well
approximated and soft. No evidence of hematoma. IV fluids discontinued. Patient able to ambulate without difficulty or incident. Patient stable for discharge to home.
Prescriptions and follow up appointment are included in the DC summary machine cloth trimmer note. All instructions were given to the patient in both written and verbal form and the patient expressed understanding.
Discharge Plan
-
Patient Disposition: Home (Routine Discharge)
Discharge Diagnosis/Procedures: Stent placement to innominate artery via right common carotid artery cutdown
Condition: Good
Diet: As tolerated
Activity: No strenuous activity
Bathing Restrictions: OK to Shower
Referrals:
Yana Reilly DO [Primary Care Provider] -
Sofi Rodriguez PA-C [Specified Professional Personl] - 06/22/24 11:00 am
Josiah Troy MD [Active] - in four to six weeks (full PFTs on day of office visit)
Prescriptions:
Continued
quetiapine [Seroquel] 25 mg Tablet
25 mg PO BID
quetiapine [Seroquel] 300 mg Tablet
300 mg PO HS
ondansetron HCl 4 mg Tablet
4 mg PO Q6H PRN (Reason: nausea)
famotidine 40 mg Tablet
40 mg PO NOON
gabapentin 400 mg Capsule
400 mg PO QID
levothyroxine [Synthroid] 100 mcg Tablet
100 mcg PO DAILY
hydromorphone [Dilaudid] 2 mg Tablet
2 mg PO Q6H PRN (Reason: pain)
gemfibrozil 600 mg Tablet
600 mg PO BID
pantoprazole 40 mg Tablet,Delayed Release (Dr/Ec)
40 mg PO DAILY
buspirone 30 mg Tablet
30 mg PO BID
ferrous sulfate 325 mg (65 mg iron) Tablet
325 mg PO DAILY
fentanyl 25 mcg/hr Patch 72 Hour
1 patch TRANSDERMAL Q72H
Rx Instructions:
Abdomen
rosuvastatin 20 mg Tablet
20 mg PO DAILY
tizanidine 4 mg Capsule
4 mg PO HS PRN (Reason: muscle spasm)
cholecalciferol (vitamin D3) [Vitamin D3] 125 mcg (5,000 unit) Tablet
125 mcg PO WEEKLY
Rx Instructions:
Q WEDNESDAY
niacin 500 mg Tablet Extended Release
500 mg PO HS
clonazepam 1 mg Tablet
1 mg PO HS
aspirin 81 mg Tablet,Chewable
81 mg PO DAILY
rivaroxaban [Xarelto] 2.5 mg tablet
2.5 mg PO BID Qty: 180 0RF
sucralfate 1 gram Tablet
1 g PO AC 14 Days Qty: 42 0RF
vortioxetine 20 mg Tablet
20 mg PO DAILY Qty: 60 0RF
mirtazapine 7.5 mg tablet
7.5 mg PO DAILY
Ibsrela 50 mg tablet
50 mg PO BID
Ubrelvy 100 mg Tablet
100 mg PO ONCE PRN (Reason: migraine)
Nurtec ODT 75 mg tablet,disintegrating
75 mg PO DAILY PRN (Reason: migraine)
ketamine
IV QMONTH
Patient Comments:
infusion Q 3weeks
Rx Instructions:
unsure of dosage
topiramate 100 mg Tablet
100 mg PO BID
Discharge Orders:
Discharge Patient (As Directed); Ordered 06/07/24
Ordered By: Reena Spencer
Discharge Date and Time
Discharge Date/Time: 06/07/24 15:14
Print Language: IRISH
--- NOTE | 2024-06-07 11:52 | PTCARENOTE ---
discharge order noted. reviewed discharge instructions with pt. A few residual questions, Vascular TUMBLER OPERATOR Dreger over to speak with patient. dressed. ambulated in hallway. awaiting sampler pickup approx 1300.
[2024-06-07] MEDS: PEPCID 40 MG PO (11:55)
[2024-06-07] MEDS: NEURONTIN PO (13:15)
--- NOTE | 2024-06-07 14:49 | PTCARENOTE ---
discharged via wc to waiting vehicle for home. all belongings sent with pt. no change, in good spirits, appreciative of the care she received here.
== END 2024-06-07 15:14 | disposition home or self-care (01) | DRG 279 ==
LOC: ICU 05:52
PROVIDERS: Nurse Practitioner; ADMITTING PHYSICIAN Surgery Vascular Surgery; CONSULT PHYSICIAN Internal Medicine Critical Care Medicine; PRIMARYCARE PHYSICIAN Family Medicine
PROC: 03F Upper Arteries, Fragmentation (ICD-10-PCS; 2024-06-06)
PROC: B3131ZZ Fluoroscopy of Right Common Carotid Artery using Low Osmolar Contrast (ICD-10-PCS; 2024-06-06)
PROC: 03723DZ Dilation of Innominate Artery with Intraluminal Device, Percutaneous Approach (ICD-10-PCS; 2024-06-06)
PROC: B31H1ZZ Fluoroscopy of Right Upper Extremity Arteries using Low Osmolar Contrast (ICD-10-PCS; 2024-06-06)
PROC: B3111ZZ Fluoroscopy of Right Brachiocephalic-Subclavian Artery using Low Osmolar Contrast (ICD-10-PCS; 2024-06-06)
DX: I70.8 Atherosclerosis of other arteries (principal); I77.1 Stricture of artery; G89.4 Chronic pain syndrome; F17.210 Nicotine dependence, cigarettes, uncomplicated; I73.9 Peripheral vascular disease, unspecified; K22.70 Barrett's esophagus without dysplasia; G43.909 Migraine, unspecified, not intractable, without status migrainosus; K58.9 Irritable bowel syndrome, unspecified; E07.9 Disorder of thyroid, unspecified; E78.00 Pure hypercholesterolemia, unspecified; F41.9 Anxiety disorder, unspecified; Z79.01 Long term (current) use of anticoagulants; Z79.82 Long term (current) use of aspirin; Z79.890 Hormone replacement therapy; Z79.899 Other long term (current) drug therapy; Z80.8 Family history of malignant neoplasm of other organs or systems; Z82.49 Family history of ischemic heart disease and other diseases of the circulatory system; Z88.1 Allergy status to other antibiotic agents
CPT/HCPCS: 36415; 37246; 71046; 80048; 85025; 85027; 85610; 85730; 86850; 86900; 86901; 93005; 95938; C1725; C1769; C1894; Q9967